=== PATIENT | female | born 1955 | race Caucasian/White ===

== ENCOUNTER 2017-04-04 19:58 | Observation (INO) ==
[2017-04-04] MEDS ORDERED: *HR* Morphine 2 MG/ML SYRINGE IVP PRN (23:20)
[2017-04-04] MEDS ORDERED: Acetaminophen 325 MG TABLET PO PRN (23:20)
[2017-04-04] MEDS ORDERED: Naloxone 0.4 MG/ML INJ IVP PRN (23:20)
[2017-04-04] MEDS ORDERED: Ondansetron 4 MG/2 ML VIAL IVP PRN (23:20)
[2017-04-04] MEDS ORDERED: Dextrose Gel 15 GM PO PRN ×2 (23:35)
[2017-04-04] MEDS ORDERED: *HR* Dextrose 50 % in Water (Syg) 50 ML SYRINGE IVP PRN (23:35)
[2017-04-04] MEDS ORDERED: D5% in Water 1,000 ML IVC PRN (23:35)
[2017-04-04] MEDS ORDERED: diazePAM 10 MG TABLET PO PRN (23:36)
--- NOTE | 2017-04-04 23:40 | Internal Med History&Physical ---
<Michelle Stinson M - Last Filed: 04/04/17 23:37> Date of Encounter: 04/04/17 Time of Encounter: 23:37 Assessment and Plan (1) Chest pain Current visit: No Status: Acute Patient presented with reports of left sided chest pressure since Sunday, constant and non radiating. She also reports long standing dyspnea on exertion. Risk factors include obesity, HTN, DM. EKG with no ischemic changes. Troponins negative. D-dimer elevated to 951. Serial troponins continuous electronic device monitor echocardiogram and exercise stress test. V/Q scan to rule out PE. Qualifiers: Chest pain type: unspecified Qualified Code(s): R07.9 - Chest pain, unspecified (2) Dyspnea on exertion Current visit: Yes Status: Acute Patient reports dyspnea on exertion, long standing. Cardiac work up including echo and stress test. V/Q scan to rule out PE. (3) Type 2 diabetes mellitus Current visit: Yes Status: Acute Patient took her long acting insulin this evening already. She is NPO after midnight. Check Blood sugars Q4hr with concern for possible hypoglycemia. Sliding scale correction dose Q6hr hypoglycemic protocol. Qualifiers: Diabetes mellitus complication status: with kidney complications Diabetes mellitus complication detail: with chronic kidney disease Diabetes mellitus group home insulin use: with assistant terminal manager use Chronic kidney disease stage: stage 4 (severe) Qualified Code(s): E11.22 - Type 2 diabetes mellitus with diabetic chronic kidney disease; N18.4 - Chronic kidney disease, stage 4 (severe); Z79.4 - intermediate frame tender (current) use of insulin (4) CKD (chronic kidney disease) stage 4, GFR 15-29 ml/min Current visit: Yes Status: Acute Patient with CKD stage [address] Bolden. Her creatinine is at baseline. Avoid NSAIDS and nephrotoxins. (5) DVT prophylaxis Current visit: Yes Status: Acute anti-embolic stockings heparin TID Internal Medicine - H&P: HPI Chief complaint: chest pain Admitted From: Emergency Dept Plans for Post Hospital Care: Home History of present illness: Ms. Reveles is a 61 year old female with hypertension, type 2 diabetes, hypothyroid, CKD stage IV is transferred from the [place] ED with complaints of chest pain. Patient reports that she started having chest pain in her left upper chest on Sunday. She reports that is constant, pressure, nonradiating, somewhat relieved by nitroglycerin given in the [place] ED. She also reports , shortness of breath on exertion, though this has been going on for a long time. She denies any lightheadedness, headache, palpitations, coughing, nausea , vomiting, abdominal pain, fever, chills or sweats. She denies any increased swelling. Evaluation today included EKG which was normal sinus rhythm with no ischemic changes. Troponins were negative at 0.01. Creatinine of 1.87 was consistent with her baseline and her diagnosis of chronic kidney disease stage IV. D-dimer was elevated, and concern was for possible PE. Due to patient's kidney function, CTA could not be performed [place] and she was sent here. On exam, patient alert and oriented, in no acute distress. Heart is regular rate and rhythm, lungs are clear bilaterally to auscultation. No peripheral edema. Past Med Surg Social Fam HX - Past Medical History Medical history: diabetes, hypertension, thyroid disease Psychiatric history: no psych history - Past Surgical History Surgical History: appendectomy, hysterectomy - Social History Smoking Status: Never smoker Smokeless Tobacco Status: No Alcohol use: none Drug use: none - Family History Father Living Status: Hx Family Cardiac Disorders: Yes ([place] at 40) Hx Family Respiratory Disorders: Yes (copd) Mother Living Status: Age at : 32 Hx Family Endocrine Disorder: Yes (type 1 diabetes) Internal Medicine - H&P: Meds Aspirin 81 mg PO HS 04/04/17 [History] Calcitriol [Rocaltrol] 0.25 mcg PO HS 04/04/17 [History] Gabapentin [Neurontin] 600 mg PO HS 04/04/17 [History] Insulin Aspart Prot/Insuln Asp [Novolog Mix 70-30 Vial] 1 unit SQ BID 04/04/17 [ History] Insulin DETEMIR [Levemir Flextouch] 35 unit SQ HS 04/04/17 [History] Levothyroxine [Synthroid] 75 mcg PO DAILY 04/04/17 [History] Lisinopril 2.5 mg PO HS 04/04/17 [History] diazePAM [Valium] 10 mg PO BID PRN 04/04/17 [History] raNITIdine HCl [Ranitidine HCl] 150 mg PO HS 04/04/17 [History] 3 Allergy/AdvReac Type Severity Reaction Status Date / Time Penicillins Allergy See Verified 04/04/17 17:49 Comments All Systems PM: A 10-system review of systems was performed and is negative for pertinent findings except as documented above in the HPI. - Constitutional Constitutional: no chills, no fever(s), no night sweats - EENT Eyes: no change in vision, no discharge, no pain, no photophobia Ears: no ear discharge, no ear pain, no tinnitus Nose, mouth and throat: no dysphagia, no nasal discharge, no neck pain, no sore throat - Cardiovascular Cardiovascular ROS IM: chest pain, dyspnea on exertion, no diaphoresis, no dyspnea, no lightheadedness, no palpitations, no syncope - Respiratory Respiratory: dyspnea on exertion, no cough, no dyspnea, no wheezing, no excessive phlegm production - Gastrointestinal Gastrointestinal: no abdominal pain, no diarrhea, no hematemesis, no hematochezia, no melena, no nausea, no vomiting - Genitourinary Genitourinary: no change in urinary stream, no dysuria, no flank pain, no hematuria - Musculoskeletal Musculoskeletal ROS IM: no numbness, no tingling - Integumentary Integumentary IM: no rash, no unusual bruising - Neurological Neurological ROS: no confusion, no convulsions, no focal weakness, no numbness, no tingling, no tremor(s) - Hematologic/Lymphatic Hematologic/Lymphatic: no easy bruising - Constitutional Vitals: Temp Pulse Resp BP Pulse Ox 98.1 F 97 18 155/93 96 04/04/17 22:06 04/04/17 22:06 04/04/17 22:06 04/04/17 22:06 04/04/17 22:06 General appearance: Present: A&O X 3, morbidly obese, pleasant, no acute distress - Head Head exam: Present: atraumatic, normocephalic - Eye Eye exam: Present: PERRL, conjuntiva pink, sclera anicteric Pupils: Present: PERRL - Neck Neck exam general surgery: Present: supple, trachea midline. Absent: lymphadenopathy - Respiratory Respiratory exam: Present: CTAB. Absent: accessory muscle use, rales, rhonchi, wheezes - Cardiovascular Cardiovascular exam: Present: RRR, +S1, +S2. Absent: diastolic murmur, gallop, rubs, systolic murmur - GI/Abdominal GI/Abdominal exam: Present: normal bowel sounds, soft, no peritoneal signs. Absent: distended, tenderness - Extremities Exam Extremities exam: Present: warm, radial pulses palpable and symmetrical. Absent : calf tenderness, cyanotic, pedal edema - Neurological Exam Neurological exam: Present: CN II-XII intact, oriented X3, no focal deficits. Absent: facial droop, speech deficit - Skin Skin exam: Present: dry, intact Internal Med - H&P Results - Labs Labs: Labs from [place] [facility]: Hgb 13.9 Hct 43.0 WBC 8.2 PLT 315 Na 140 K 4.8 Cl 106 CO2 22 BUN 21 cr 1.87 Glu 94 Trop 0.01 D-dimer 951 <Jabier Miranda - Last Filed: 04/04/17 23:56> Date of Encounter: 04/04/17 Internal Medicine - H&P: HPI History of present illness: Ms. Reveles is a 61 year old female All Systems PM: A 10-system review of systems was performed and is negative for pertinent findings except as documented above in the HPI. - Constitutional Vitals: Temp Pulse Resp BP Pulse Ox 98.1 F 97 18 155/93 96 04/04/17 22:06 04/04/17 22:06 04/04/17 22:06 04/04/17 22:06 04/04/17 22:06 - Attending Attestation I have personally performed a face to face evaluation on this patient. I have reviewed and agree with the care plan. History and Exam by me shows: 61-year-old female with with one-week history of chest pain. Pain described as an achy persistent long duration, no radiation. Seen PCP who did a d-dimer that was elevated. As a result she was referred to local ER. Local ER wishes to transfer to the [place] for chest pain rule out specifically with a VQ scan for PE and cardiac stress testing. CT PE contraindicated in the setting of chronic kidney disease Known risk factors include obesity and diabetes. EKG reviewed by self - sinus rhythm, rate in the 80s. General - AAO x 3 Psych - Appropriate affect/speech. No agitation Eyes - NEVIN. Eye lids intact. No scleral icterus Heart - Sinus. RRR. S1 and S2 present. No added HS/murmurs appreciated. No elevated JVD appreciated. No calf swellings/erythema Lung - Adequate air entry b/l, No crackes/wheezes appreciated GI - Soft, non-tender. No hepatosplenomegaly/ascites. BS+ - No CVA/suprapubic tenderness or palpable bladder distension Skin - Intact. No rash/petechiae/ecchymosis. Warm extremities MSK - Joints with normal ROM. No joint swellings Assessment and plan Admission for observation with plan for VQ scan and nuclear stress testing
[2017-04-04] MEDS ORDERED: Gabapentin 300 MG CAPSULE PO SCH (23:45)
[2017-04-04] MEDS ORDERED: Famotidine 20 MG TABLET PO SCH (23:45)
[2017-04-05] MEDS: Insulin LISPRO 300 UNITS/3 ML VIAL SQ SCH ×4 (00:13→12:19)
[2017-04-05 04:57] LABS: Basophils # 0.1 K/mcL (0.0-0.2); Basophils % 1.6 %; Eosinophils # 0.3 K/mcL (0.0-0.6); Hematocrit 41.2 % (35.3-44.9); Hemoglobin 13.1 g/dL (11.5-15.4); Immature Granulocytes % 0.2 % (0-4); Lymphocytes # 3.1 K/mcL (0.6-4.6); Lymphocytes % 35.7 %; Mean Corpuscular HGB Conc 31.8 g/dL (31.6-35.5); Mean Corpuscular Hemoglobin 26.9 pg (28.0-33.3); Mean Corpuscular Volume 84.6 fL (83.0-100.0); Mean Platelet Volume 11.1 fL (9.4-12.4); Monocytes # 0.8 K/mcL (0.0-1.3); Monocytes % 9.1 %; Neutrophils # 4.2 K/mcL (1.6-8.9); Platelet Count 286 K/mcL (140-400); Red Blood Count 4.87 M/mcL (3.82-4.97); Red Cell Distribution Width 15.4 % (11.5-14.5); Segmented Neutrophils % 49.4 %
[2017-04-05 05:04] LABS: Calcium 9.6 mg/dL (8.6-10.8); Chol/HDL Ratio 5.2 (0-4.9); Potassium 4.4 mEq/L (3.5-4.5)
[2017-04-05] MEDS ORDERED: 0.9 % Sodium Chloride 1,000 ML IVC SCH (05:45)
[2017-04-05] MEDS: *HR* Heparin 5,000 UNIT/ML VIAL SQ SCH ×2 (05:49→13:28)
[2017-04-05] MEDS ORDERED: *HR* Dextrose 50 % in Water (Syg) 50 ML SYRINGE IVP PRN (06:07)
[2017-04-05] MEDS ORDERED: D5% in Water 1,000 ML IVC PRN (06:07)
[2017-04-05] MEDS ORDERED: Dextrose Gel 15 GM PO PRN ×2 (06:07)
[2017-04-05 12:13] VITALS: BP 157/80
--- NOTE | 2017-04-05 13:43 | Discharge Summary ---
Date of Encounter: 04/05/17 Time of Encounter: 13:15 - Discharge Diagnosis (1) Chest pain Priority: Primary Status: Acute Comments: Unclear causation however cardiac etiology less likely. Troponins negative 4. Chest x-ray negative. Echocardiogram unremarkable. Patient denies shortness of breath. Patient recently changed her GERD medicine that she has been on for several years-esophageal spasm a possibility. She states that her reflux is but uncontrolled ever since she changed medications. Unable to do a stress test during this visit as there needs to be 60 hours in between a VQ scan and a stress test. Recommended close outpatient follow-up and return to ER if chest pain continues. Qualifiers: Chest pain type: unspecified Qualified Code(s): R07.9 - Chest pain, unspecified (2) Dyspnea on exertion Priority: Primary Status: Acute Comments: Acute on chronic. PE ruled out. Chest x-ray negative. Likely secondary to body habitus and sedentary lifestyle. Echocardiogram revealing preserved ejection fraction with mild diastolic dysfunction-patient euvolemic and did not appear to be exhibiting signs consistent with congestive heart failure. Recommend close outpatient follow-up. (3) Elevated d-dimer Priority: Primary Status: Ruled-out (4) GERD (gastroesophageal reflux disease) Priority: Secondary Status: Chronic Comments: Patient had been on Protonix for several years but stopped it as it gave her diarrhea. She recently switched to Zantac and states since that time, that her reflexes been horribly uncontrolled. This which was just over the past week or so. We will change her back to omeprazole and have her follow up outpatient. (5) Hyperlipidemia Priority: Secondary Status: Chronic Comments: Lipid panel abnormal with total cholesterol 201 and LDL 138. We will initiate statin at this time. Qualifiers: Hyperlipidemia type: unspecified Qualified Code(s): E78.5 - Hyperlipidemia , unspecified (6) Type 2 diabetes mellitus Priority: Secondary Status: Chronic Comments: Controlled with a recent A1c of 6.5%. Continue follow-up outpatient Qualifiers: Diabetes mellitus complication status: with kidney complications Diabetes mellitus complication detail: with chronic kidney disease Diabetes mellitus shelter insulin use: with terminal carman use Chronic kidney disease stage: stage 4 (severe) Qualified Code(s): E11.22 - Type 2 diabetes mellitus with diabetic chronic kidney disease; N18.4 - Chronic kidney disease, stage 4 (severe); Z79.4 - technician terminal and repeater (current) use of insulin (7) CKD (chronic kidney disease) stage 4, GFR 15-29 ml/min Priority: Secondary Status: Chronic Comments: Stable throughout this admission, follow-up outpatient (8) DVT prophylaxis Priority: Primary Status: Acute Comments: Subcutaneous heparin while admitted (9) Morbid obesity with BMI of 40.0-44.9, adult Priority: Secondary Status: Chronic - Discharge Medications Prescriptions: Omeprazole [PriLOSEC] 20 mg PO DAILY #30 cap Rosuvastatin [Crestor] 20 mg PO HS #30 tablet Home Medications: Aspirin 81 mg PO HS 04/04/17 [History] Calcitriol [Rocaltrol] 0.25 mcg PO HS 04/04/17 [History] Gabapentin [Neurontin] 300 mg PO TID 04/04/17 [History] Insulin Aspart Prot/Insuln Asp [Novolog Mix 70-30 Vial] 20 - 58 unit SQ BID PRN 04/04/17 [History] Insulin DETEMIR [Levemir Flextouch] 25 - 35 unit SQ HS 04/04/17 [History] Levothyroxine [Synthroid] 75 mcg PO DAILY 04/04/17 [History] Lisinopril 2.5 mg PO HS 04/04/17 [History] diazePAM [Valium] 10 mg PO BID PRN 04/04/17 [History] Omeprazole [PriLOSEC] 20 mg PO DAILY #30 cap 04/05/17 [Rx] Rosuvastatin [Crestor] 20 mg PO HS #30 tablet 04/05/17 [Rx] Allergies/Adverse Reactions: 3 Allergy/AdvReac Type Severity Reaction Status Date / Time Penicillins Allergy See Verified 04/04/17 17:49 Comments Procedures/tests Complete & Pending: Procedures Performed prior 72 hours Category Date Time Status NM pul vent and perfuse [NM] Routine Exams 04/05/17 10:30 Completed EV echocardiogram Routine Y 04/05/17 23:22 Completed Date of admission: 04/04/17 21:35 Primary care physician: Ash Rosen CNP Discharging clinician: Arianne Santos Anticipated date of discharge: 04/05/17 - Patient Status Disposition: Home, Self-Care Condition: Good Functional capacity at discharge: independent ambulation Overall status at discharge: patient is progressing back to baseline - Discharge Instructions Follow Up With: Ash Rosen CNP [Primary Care Provider] - Additional Instructions: Follow-up with primary care provider within one to 2 weeks. - Diet and Activity Activity: increase activity as tolerated Diet: diabetic diet, low fat, low cholesterol, low salt diet Hospital course: Ms. Reveles is a 61 year old female with past medical history of diabetes, hypertension, hypothyroidism, chronic kidney disease stage IV, prior appendectomy, prior hysterectomy, morbid obesity. Patient presented to emergency department chief complaint chest pain. Patient stating she started have chest pain in her left upper chest 2 days prior to presentation. She reported that the pain was constant, pressure-like, and did not radiate. Mildly relieved with nitroglycerin given in [place] emergency Department. Patient also endorsed shortness of breath with exertion that had been going on for quite some time. Patient denied lightheadedness, headache, palpitations, coughing, abdominal pain. She also denied any increased swelling. Workup in the emergency department unremarkable other than an elevated d-dimer. EKG without ischemic changes. Renal functioning at her baseline. Patient was admitted to the hospitalist service for further evaluation and management. VQ scan essentially ruled out a PE. Troponins negative 4. Echocardiogram unremarkable with ejection fraction of 60-65% and mild diastolic dysfunction. Patient euvolemic on examination during this admission and had no signs of fluid overload or acute heart failure. Given that her cardiac workup was unremarkable, recommend further follow-up outpatient. She was unable to obtain a stress test as stress test and VQ scan need to have 60 hours in between them. Further inpatient workup was not warranted at this time. Of note, patient has severe reflux and she had been on Protonix for several years but was taken off it due to chronic diarrhea. She was started on Zantac recently and stated that her reflux had gotten severe after the medication change. Possible diagnosis of esophageal spasm given her uncontrolled reflux and partial relief with nitroglycerin. Acute coronary syndrome was ruled out. She was changed to omeprazole. For further risk factor stratification, she was started on a statin given her dyslipidemia. She was discharged home in stable condition with close outpatient follow-up recommended. ITS Impressions Pulmonary Perfusion Imaging 04/05/17 10:30 IMPRESSION: Low Probability for Pulmonary Embolus. D/ / Poppy Dove MD / Poppy Dove MD Interpreting Provider: Poppy Dove MD Echocardiogram Date of Study: 04/05/2017 Impressions: LVEF 60-65%. Normal left ventricular size and systolic function. There is evidence of mild diastolic dysfunction of the left ventricle. Normal right ventricular size and function. No significant valvular dysfunction. No pulmonary hypertension by TR gradient. - Time Spent with Patient Total time spent providing and/or coordinating discharge services: - Constitutional Vitals: Temp Pulse Resp BP Pulse Ox 97.5 F L 79 16 157/80 97 04/05/17 12:10 04/05/17 12:10 04/05/17 12:10 04/05/17 12:10 04/05/17 12:10 General appearance: Present: A&O X 3, morbidly obese, pleasant, no acute distress, answers questions appropriately - Head Head exam: Present: atraumatic, normocephalic - Eye Eye exam: Present: PERRL, conjuntiva pink, sclera anicteric Pupils: Present: PERRL - Neck Neck exam general surgery: Present: supple, trachea midline. Absent: lymphadenopathy - Respiratory Respiratory exam: Present: CTAB. Absent: accessory muscle use, rales, respiratory distress, rhonchi, wheezes - Cardiovascular Cardiovascular exam: Present: RRR, +S1, +S2. Absent: diastolic murmur, gallop, rubs, systolic murmur - GI/Abdominal GI/Abdominal exam: Present: normal bowel sounds, soft, no peritoneal signs. Absent: distended, tenderness - Extremities Exam Extremities exam: Present: warm, radial pulses palpable and symmetrical. Absent : calf tenderness, cyanotic, pedal edema - Neurological Exam Neurological exam: Present: alert, CN II-XII intact, normal gait, oriented X3, no focal deficits, strengths equal and symetr throughout. Absent: pronater drift, facial droop, speech deficit - Skin Skin exam: Present: dry, intact, normal color, warm - VTE Documentation of Mechanical Device: Graduated compression elastic hosiery
[2017-04-05] MEDS ORDERED: Insulin LISPRO 300 UNITS/3 ML VIAL SQ SCH (21:00)
[2017-04-05] MEDS ORDERED: Aspirin 81 MG TAB.CHEW PO SCH (21:00)
== END 2017-04-05 14:32 | disposition home or self-care (01) ==
LOC: 3BNU
PROVIDERS: ADMIT Nurse Practitioner Acute Care; ATTEND Nurse Practitioner Family

== ENCOUNTER 2018-09-07 09:45 | Observation (INO) ==
[2018-09-07] MEDS ORDERED: traMADol 50 MG TABLET PO PRN (12:04)
[2018-09-07] MEDS ORDERED: Naloxone 0.4 MG/ML INJ IVP PRN (12:04)
[2018-09-07] MEDS ORDERED: *HR* Heparin 5,000 UNIT/ML VIAL IVP ONE (12:08)
[2018-09-07] MEDS ORDERED: D5% in Water 1,000 ML IVC PRN (12:08)
[2018-09-07] MEDS ORDERED: Dextrose Gel 15 GM/37.5 ML TUBE PO PRN ×2 (12:08)
[2018-09-07] MEDS ORDERED: *HR* Heparin 5,000 UNIT/ML VIAL IVP PRN ×2 (12:08)
[2018-09-07] MEDS ORDERED: *HR* Dextrose 50 % in Water (Syg) 50 ML SYRINGE IVP PRN (12:08)
--- NOTE | 2018-09-07 13:00 | Internal Med History&Physical ---
Date of Encounter: 09/07/18 Time of Encounter: 12:52 Internal Medicine - H&P: HPI Chief complaint: syncope Admitted From: Home Plans for Post Hospital Care: Home History of present illness: Ms. Reveles is a 62 year old female PMH of HLD, Diabetes, CKD stage IV, HFpEF and HTN. Patient was taken to [place] [facility] following a syncopal episode. Patient reports, today morning after waking up, she passed out on the way to the bathroom, she cannot recall for how long she was out. Denies hitting her head, and recovering consciousness completely following this event. She stated that before passing out she was feeling lightheaded, and dizzy. After she recovered consciousness she was lightheaded and dizzy on the way to the hospital. She denies seizure like activity, urinary or bowel incontinence. Patient also reports having subjective fever and chills on , reports that she has been feeling sick since and has not been able to eat almost anything due to a poor appetite. She denied loose stool/diarrhea, nausea, vomiting or abdominal pain. reports recently being treated for a UTI. In [place] patient was found to be hypotensive, tachycardia and with an elevated D-dimer for with the patient was transferred to [facility] for further evaluation. Past Med Surg Social Fam HX - Past Medical History Medical history: diabetes, GERD, hyperlipidemia, hypertension, renal disease, thyroid disease, other Additional medical history: STAGE 4 KIDNEY FAILURE Psychiatric history: no psych history - Past Surgical History Surgical History: appendectomy, , hysterectomy, other - Social History Smoking Status: Never smoker Smokeless Tobacco Status: No Alcohol use: none Drug use: none - Family History Father Living Status: Hx Family Cardiac Disorders: Yes ([place] at 40) Hx Family Respiratory Disorders: Yes (copd) Mother Living Status: Hx Family Endocrine Disorder: Yes (type 1 diabetes) Internal Medicine - H&P: Meds Aspirin 81 mg PO HS 04/04/17 [History] Calcitriol [Rocaltrol] 0.25 mcg PO HS 04/04/17 [History] Gabapentin [Neurontin] 600 mg PO DAILY 04/04/17 [History] Insulin Aspart Prot/Insuln Asp [Novolog Mix 70-30 Vial] 20 - 58 unit SQ BID PRN 04/04/17 [History] Insulin DETEMIR [Levemir Flextouch] 25 - 35 unit SQ HS 04/04/17 [History] Levothyroxine [Synthroid] 75 mcg PO DAILY 04/04/17 [History] Lisinopril 2.5 mg PO HS 04/04/17 [History] diazePAM [Valium] 10 mg PO BID PRN 04/04/17 [History] Rosuvastatin [Crestor] 20 mg PO HS #30 tablet 04/05/17 [Rx] Ranitidine HCl [Heartburn Relief] 150 mg PO BID 02/05/18 [History] Cetirizine HCl [All Day Allergy] 10 mg PO DAILY 09/07/18 [History] Allergy/AdvReac Type Severity Reaction Status Date / Time Penicillins Allergy See Verified 09/07/18 05:45 Comments All Systems PM: A 10-system review of systems was performed and is negative for pertinent findings except as documented above in the HPI. - Constitutional Constitutional: chills, fever(s) (subjective. ), weakness, no lethargy - EENT Eyes: blurry vision, no floaters Nose, mouth and throat: no bleeding gums - Cardiovascular Cardiovascular ROS IM: lightheadedness, syncope, no chest pain, no dyspnea, no dyspnea on exertion, no edema, no irregular heart rhythm, no orthopnea, no palpitations, no paroxysmal nocturnal dyspnea - Respiratory Respiratory: no cough, no dyspnea on exertion, no wheezing, no excessive phlegm production, no change in phlegm color - Gastrointestinal Gastrointestinal: no abdominal pain, no diarrhea, no loose stools, no nausea, no vomiting - Genitourinary Genitourinary: no dysuria, no urinary hesitancy, no urinary incontinence, no urinary urgency - Musculoskeletal Musculoskeletal ROS IM: no muscle cramps - Integumentary Integumentary IM: no erythema, no sores - Neurological Neurological ROS: dizziness, no confusion, no headache(s), no lack of coordination - Psychiatric Psychiatric: no irritability - Allergic/Immunologic Allergic/Immunologic: no wheezing Additional comments: Rest of a 10 system review of system negative. - Constitutional Vitals: Temp Pulse Resp BP Pulse Ox 97.9 F 75 17 132/77 98 09/07/18 11:54 09/07/18 11:54 09/07/18 11:54 09/07/18 11:54 01/26/19 11:54 Exam: Vitals: Reviewed. General: Obese, Alert and oriented x4. In no distress Skin: Normal color, no rash, no lesions. HEENT: dry oral mucosa, EOM, pupils equal, round and reactive. Cardiovascular: RRR, normal S1 & S2, no rubs, murmurs or gallops. Lungs: CTA b/l, no wheezes or crackles. Abdomen: Soft, non-tender, no rigidity. Extremities: No deformity, no edema or tenderness, no joint swelling or clubbing. Neurological: Normal cognition and motor skills. Rest of the physical exam is non contributory Internal Med - H&P Results - Labs CBC & Chem 7: 09/07/18 12:52 - Assessment and plan (1) Syncope Current Visit: No Status: Acute Assessment and plan: likely vaso-vagl syncope in the setting of hypotension due to low oral intake Plan started on gentle IV hydration check for orthostatics telemetry monitoring to eval for cardiac arrhythmia head ct to r/o any intracranial abnormality. Qualifiers: Syncope type: unspecified Qualified Code(s): R55 - Syncope and collapse (2) CKD (chronic kidney disease) stage 4, GFR 15-29 ml/min Current Visit: No Status: Chronic Assessment and plan: JUSTICE on ckd due to poor PO intake for about 4 days. started on IV hydration. If kidney function worsen consider nephrology consult and a retroperitoneal us. (3) Hyperlipidemia Current Visit: No Status: Chronic Assessment and plan: resume statin, home dose. Qualifiers: Hyperlipidemia type: unspecified Qualified Code(s): E78.5 - Hyperlipidemia, unspecified (4) Morbid obesity with BMI of 40.0-44.9, adult Current Visit: No Status: Chronic (5) Type 2 diabetes mellitus Current Visit: No Status: Chronic Assessment and plan: Carb controlled diet. will start patient on lispro low-dose sliding scale before meals. Qualifiers: Diabetes mellitus halfway insulin use: with halfway use Diabetes mellitus complication status: with kidney complications Diabetes mellitus complication detail: with chronic kidney disease Chronic kidney disease stage: stage 4 (severe) Qualified Code(s): E11.22 - Type 2 diabetes mellitus with diabetic chronic kidney disease; N18.4 - Chronic kidney disease, stage 4 (severe); Z79.4 - terminal operations manager (current) use of insulin (6) Elevated d-dimer Current Visit: No Status: Ruled-out Assessment and plan: in this patient with a syncope episode, hypotensive and elevated d-dime will r/o PE as a potential cause of her symptoms. started on a heparin drip V?Q scan ordered Venous dupplex of the lower extr to r/o dvt. (7) DVT prophylaxis Current Visit: No Status: Acute Assessment and plan: started on a heparin drip until PE is r/o out (8) Hypothyroidism Current Visit: Yes Status: Chronic Assessment and plan: continue Levothyroxine 75mcg/PO daily. will chect TSH reflex to t4. Qualifiers: Hypothyroidism type: unspecified Qualified Code(s): E03.9 - Hypothyroidism, unspecified - Time Spent With Patient Total time spent is greater than 50% in coordination of care (as documented) at patient's floor/unit and/or counseling patient: Greater than 35 minutes (45)
[2018-09-07] MEDS: Heparin 25,000 UNIT/500 ML D5W 25,000 UNIT/500 ML BAG IVC SCH (13:07)
[2018-09-07] MEDS: 0.9 % Sodium Chloride 1,000 ML IVC SCH ×2 (13:10→22:07)
[2018-09-07 13:13] LABS: Hematocrit 38.3 % (35.3-44.9); Hemoglobin 12.2 g/dL (11.5-15.4); Mean Corpuscular HGB Conc 31.9 g/dL (31.6-35.5); Mean Platelet Volume 10.2 fL (9.4-12.4); Platelet Count 169 K/mcL (140-400); Red Blood Count 4.35 M/mcL (3.82-4.97); Red Cell Distribution Width 13.1 % (11.5-14.5)
[2018-09-07 13:33] LABS: INR 1.1; Prothrombin Time 12.4 Seconds (9.4-12.1)
[2018-09-07] MEDS: Insulin LISPRO 300 UNITS/3 ML VIAL SQ SCH (17:07)
[2018-09-08] MEDS: Heparin 25,000 UNIT/500 ML D5W 25,000 UNIT/500 ML BAG IVC SCH (00:47)
[2018-09-08] MEDS ORDERED: Acetaminophen 325 MG TABLET PO ONE (05:40)
[2018-09-08 06:14] LABS: Bilirubin,Urine Negative (Negative); Blood,Urine Small (Negative); Clarity,Urine Cloudy (Clear); Color,Urine Yellow (Yellow); Glucose,Urine (UA) Normal (Normal); Ketones,Urine Trace mg/dL (Negative); Leukocyte Esterase,Urine Small (Negative); Nitrite,Urine Negative (Negative); Protein,Urine 30 mg/dL (Neg-Trace); Urobilinogen,Urine Normal (Normal)
[2018-09-08 06:17] LABS: Hyaline Casts,Urine None Seen per lpf (None-Few); Squamous Epithelial Cell,Urine Many per lpf (None-Few)
[2018-09-08 06:29] LABS: Bacteria,Urine Few per hpf (None-Few); Mucus,Urine Few (Few); Yeast,Urine Few per hpf (None Seen)
[2018-09-08 07:04] LABS: Hematocrit 36.8 % (35.3-44.9); Mean Corpuscular HGB Conc 32.6 g/dL (31.6-35.5); Mean Corpuscular Hemoglobin 28.4 pg (28.0-33.3); Mean Corpuscular Volume 87.2 fL (83.0-100.0); Mean Platelet Volume 10.3 fL (9.4-12.4); Platelet Count 191 K/mcL (140-400); Red Blood Count 4.22 M/mcL (3.82-4.97); Red Cell Distribution Width 13.3 % (11.5-14.5)
[2018-09-08 07:25] LABS: Magnesium 1.5 mg/dL (1.6-2.6); Phosphorous 1.9 mg/dL (2.7-4.5); Potassium 3.6 mEq/L (3.5-5.1)
[2018-09-08 07:38] LABS: Thyroid Stimulating Hormone 9.76 mcIU/mL (0.340-5.600)
[2018-09-08] MEDS: Insulin LISPRO 300 UNITS/3 ML VIAL SQ SCH ×3 (08:04→17:10)
[2018-09-08] MEDS ORDERED: diazePAM 10 MG TABLET PO PRN (10:40)
--- NOTE | 2018-09-08 18:56 | Internal Med Progress Note ---
Hospitalist Progress Note - Encounter Date of Encounter: 09/08/18 Time of Encounter: 15:00 - Subjective Interval History: SUBJECTIVE: The patient feels good. Denies chest pain and difficulty breathing. Denies dizziness/lightheadedness, when sitting in bed. She has not started any ambulation yet. OBJECTIVE: Skin: Free of rash and discoloration. ENMT: Oral/pharyngeal mucosa is normal in appearance. Eyes: Sclera is white. There is no discharge from eyes. Respiratory: Normal breath sounds; no crackles or wheezes. CV: Heart is regular; no gallop or murmur. GI: Abdomen is soft and not tender. There is no palpable mass or visceromegaly. Neuro: There is no focal deficits. ADDITIONAL DATA: VQ scan is low probability. CBC shows hemoglobin of 12.0 with WBC of 2.9 thousand and normal platelet count. Her electrolytes are showing bicarb of 17. Creatinine is 1.84 with a GFR of 28. Her renal function is baseline. ASSESSMENT AND PLAN: Syncope. Likely secondary to postural hypotension. The patient was taking small amounts of fluids in the last few days due to her cough. She likely got upper respiratory infection from her . I will check her orthostatics. We will start her on physical therapy. Type 2 diabetes mellitus. With CKD stage IV. To continue diabetic diet and when necessary Humalog. Hypertensive renal disease with CKD stage IV. Blood pressure is betterwas hypotensive at admission. I keep her lisinopril on hold. Hypothyroidism/GERD. Under control. To continue Synthroid and Prilosec. Morbid obesity with BMI of 45.5. To be addressed in outpatient settings. DISPOSITION: I am hoping to discharge her home in a 1-2 days. - Exam Vitals: Temp Pulse Resp BP Pulse Ox 97.8 F 70 17 129/75 97 09/08/18 15:38 09/08/18 15:38 09/08/18 15:38 09/08/18 15:38 09/08/18 15:38 Exam: xx - Assessment and Plan (1) Syncope Current Visit: No Status: Acute (2) Postural hypotension Current Visit: Yes Status: Acute (3) Type 2 diabetes mellitus Current Visit: No Status: Chronic (4) Hypertensive renal disease with renal failure Current Visit: Yes Status: Chronic (5) Hypothyroidism Current Visit: Yes Status: Chronic (6) GERD (gastroesophageal reflux disease) Current Visit: Yes Status: Chronic (7) Morbid obesity with BMI of 40.0-44.9, adult Current Visit: Yes Status: Chronic - Time Spent with Patient Total time spent is greater than 50% in coordination of care (as documented) at patient's floor/unit and/or counseling patient: 25 - 35 minutes Plan of Care Discussed with: patient Internal Medicine: Result - Labs CBC & Chem 7: 09/08/18 06:31 09/08/18 06:31 Labs: Short CBC 09/08/18 Range/Units 06:31 WBC 2.9 L (4.3-11.1) K/mcL Hgb 12.0 (11.5-15.4) g/dL Hct 36.8 (35.3-44.9) % Plt Count 191 (140-400) K/mcL BMP 09/08/18 06:31 Sodium 136 Potassium 3.6 Chloride 108 H Carbon Dioxide 17 L BUN 26 H Creatinine 1.84 H Glucose 185 H Calcium 8.0 L Urine 09/08/18 Range/Units 05:52 Urine Color Yellow (Yellow) Urine Clarity Cloudy A (Clear) Urine pH 6.0 (5.0-8.0) pH Units Ur Specific [place] 1.020 (1.010-1.025) Urine Protein 30 H (Neg-Trace) mg/dL Urine Glucose (UA) Normal (Normal) mg/dL - ABG Interpretation ABG results: PT/INR, D-dimer PT 12.4 Seconds (9.4-12.1) H 09/07/18 12:52 - Impressions Impressions Pulmonary Perfusion Imaging 09/07/18 12:07 IMPRESSION: Very low probability for pulmonary embolism. D/ / Jeff Cast MD / Jeff Cast MD Interpreting Provider: Jeff Cast MD Head CT 09/07/18 13:21 IMPRESSION: No evidence of acute intracranial abnormality. D/ / 09/07/2018 19:00:54 Ran Sampson MD / [place] Interpreting Provider: Ran Samposn MD Consult Discharge Plan - Plan Referrals: Fay Genao, STATISTICAL TECHNICIAN [Primary Care Provider] - (1) Syncope Qualifiers: Syncope type: unspecified Qualified Code(s): R55 - Syncope and collapse (3) Type 2 diabetes mellitus Qualifiers: Diabetes mellitus nursing home insulin use: with nursing home use Diabetes mellitus complication status: with kidney complications Diabetes mellitus complication detail: with chronic kidney disease Chronic kidney disease stage: stage 4 (severe) Qualified Code(s): E11.22 - Type 2 diabetes mellitus with diabetic chronic kidney disease; N18.4 - Chronic kidney disease, stage 4 (severe); Z79.4 - FDC (current) use of insulin (5) Hypothyroidism Qualifiers: Hypothyroidism type: unspecified Qualified Code(s): E03.9 - Hypothyroidism, unspecified (6) GERD (gastroesophageal reflux disease) Qualifiers: Esophagitis presence: esophagitis presence not specified Qualified Code(s): K21.9 - Gastro-esophageal reflux disease without esophagitis
[2018-09-08] MEDS ORDERED: Insulin DETEMIR 100 UNIT/ML X5UNITS SQ SCH ×2 (21:00→21:45)
[2018-09-08] MEDS ORDERED: Aspirin 81 MG TAB.CHEW PO SCH (21:00)
[2018-09-08] MEDS ORDERED: Gabapentin 300 MG CAPSULE PO SCH (21:00)
[2018-09-08] MEDS: Famotidine 20 MG TABLET PO SCH (21:31)
[2018-09-09 06:51] LABS: Basophils % 1.3 %; Eosinophils # 0.2 K/mcL (0.0-0.6); Eosinophils % 5.8 %; Immature Granulocytes % 0.3 % (0-4); Lymphocytes # 1.3 K/mcL (0.6-4.6); Lymphocytes % 42.3 %; Mean Corpuscular HGB Conc 32.4 g/dL (31.6-35.5); Mean Corpuscular Hemoglobin 28.3 pg (28.0-33.3); Mean Corpuscular Volume 87.3 fL (83.0-100.0); Mean Platelet Volume 10.1 fL (9.4-12.4); Monocytes # 0.4 K/mcL (0.0-1.3); Monocytes % 12.2 %; Neutrophils # 1.2 K/mcL (1.6-8.9); Platelet Count 186 K/mcL (140-400); Red Blood Count 4.24 M/mcL (3.82-4.97); Segmented Neutrophils % 38.1 %
[2018-09-09] MEDS: Insulin LISPRO 300 UNITS/3 ML VIAL SQ SCH ×2 (07:08→11:09)
[2018-09-09 07:09] LABS: Calcium 8.6 mg/dL (8.6-10.3); Magnesium 1.8 mg/dL (1.6-2.6); Potassium 3.9 mEq/L (3.5-5.1)
[2018-09-09] MEDS: Famotidine 20 MG TABLET PO SCH (07:12)
[2018-09-09] MEDS ORDERED: Loratadine 10 MG TABLET PO SCH (09:00)
[2018-09-09 11:08] VITALS: BP 120/75
--- NOTE | 2018-09-09 13:28 | Discharge Summary ---
Date of Encounter: 09/09/18 Time of Encounter: 13:22 - Discharge Diagnosis (1) Syncope Priority: Primary Status: Acute Qualifiers: Syncope type: unspecified Qualified Code(s): R55 - Syncope and collapse (2) Postural hypotension Priority: Primary Status: Acute (3) Type 2 diabetes mellitus Priority: Secondary Status: Chronic Qualifiers: Diabetes mellitus prison insulin use: with meat smoker use Diabetes [place] complication status: with kidney complications Diabetes mellitus complication detail: with chronic kidney disease Chronic kidney disease stage: stage 4 (severe) Qualified Code(s): E11.22 - Type 2 diabetes mellitus with diabetic chronic kidney disease; N18.4 - Chronic kidney disease, stage 4 (severe); Z79.4 - shelter (current) use of insulin (4) Hypertensive renal disease with renal failure Priority: Secondary Status: Chronic (5) Hypothyroidism Priority: Secondary Status: Chronic Qualifiers: Hypothyroidism type: unspecified Qualified Code(s): E03.9 - Hypothyroidism, unspecified (6) GERD (gastroesophageal reflux disease) Priority: Secondary Status: Chronic Qualifiers: Esophagitis presence: esophagitis presence not specified Qualified Code(s): K21.9 - Gastro-esophageal reflux disease without esophagitis (7) Morbid obesity with BMI of 40.0-44.9, adult Priority: Secondary Status: Chronic Hospital course: HOSPITAL COURSE: The patient is a 62 year old woman. We admitted her after she had experienced syncopal episodes. It was preceded by dizziness/lightheadedness. She was hypotensive at admission. Got better with IV fluids. We did not check her for postural hypotension on day 1. We checked her for it yesterday. It was negative. We did not see any serious cardiac arrhythmia. Her glucose control was satisfactory. CT of brain was normal. VQ scan showed very low probability for pulmonary embolism. CONDITION AT DISCHARGE: She feels good. Not dizzy/lightheaded. Has no problems with ambulation at all. Denies chest pain. Denies difficulty breathing, coughing and wheezing. Skin: Free of rash and discoloration. Respiratory: Normal breath sounds with no crackles and wheezes bilaterally. CV: Heart is regular with no gallop or murmur. GI: Abdomen is flat and soft with no palpable mass or visceromegaly. Neuro exam: There is no focal deficits. Normal speech, swallowing and gait. SEE DISCHARGE ORDERS/MEDICATIONS Discharge discussed with: patient, family, case management - Time Spent with Patient Total time spent providing and/or coordinating discharge services: Greater than 30 minutes (40 minutes...) - Discharge Medications Home Medications: Aspirin 81 mg PO HS 04/04/17 [History] Calcitriol [Rocaltrol] 0.25 mcg PO HS 04/04/17 [History] Gabapentin [Neurontin] 600 mg PO HS 04/04/17 [History] Insulin Aspart Prot/Insuln Asp [Novolog Mix 70-30 Vial] 30 - 60 unit SQ BID 04/04/17 [History] Insulin DETEMIR [Levemir Flextouch] 25 - 30 unit SQ HS 04/04/17 [History] Levothyroxine [Synthroid] 75 mcg PO 0600 04/04/17 [History] Lisinopril 2.5 mg PO HS 04/04/17 [History] diazePAM [Valium] 10 mg PO DAILY PRN 04/04/17 [History] Rosuvastatin [Crestor] 20 mg PO HS #30 tablet 04/05/17 [Rx] Ranitidine HCl [Heartburn Relief] 150 mg PO BID 02/05/18 [History] Cetirizine HCl [All Day Allergy] 10 mg PO DAILY 09/07/18 [History] Allergies/Adverse Reactions: Allergy/AdvReac Type Severity Reaction Status Date / Time Penicillins Allergy See Verified 09/07/18 05:45 Comments Date of admission: 09/07/18 10:54 Primary care physician: Fay Genao CNP Discharging clinician: Erik Pressley Anticipated date of discharge: 09/09/18 - Constitutional Vitals: Temp Pulse Resp BP Pulse Ox 97.9 F 73 18 120/75 97 09/09/18 11:06 09/09/18 11:06 09/09/18 11:06 09/09/18 11:06 09/09/18 11:06 General appearance: Present: A&O X 3, no acute distress, answers questions appropriately Exam: xx - Patient Status Disposition: Home, Self-Care Condition: Good Functional capacity at discharge: independent ambulation Overall status at discharge: patient is back to baseline - Discharge Instructions Follow Up With: Fay Genao CNP [Primary Care Provider] - 09/13/18 11:00 am (Please follow up as schedule...) Additional Instructions: THE PATIENT WAS ADVISED TO DRINK 3-4 PINTS OF FLUID PER DAY... - Diet and Activity Activity: increase activity as tolerated Diet: advance to your usual diet - VTE Reasons for not Prescribing Prophylaxis: Treatment not Indicated - Low risk for VTE
[2018-09-09] MEDS ORDERED: Famotidine 20 MG TABLET PO SCH (16:30)
== END 2018-09-09 14:12 | disposition home or self-care (01) ==
LOC: 2ANU → SUATTDRO 10:54
PROVIDERS: ADMIT Internal Medicine; ATTEND Internal Medicine